=== PATIENT | female | born 1940 | race Caucasian/White ===

== ENCOUNTER → 2016-12-29 | Outpatient (REF) | payer MEDICARE, BC, OTHER ==
[~2016-12-29] MED LIST: ACID1TAB10 PO; ALDA50TA2 PO; AMIT25TA PO; AQUAOIN2 TOP; ASCO25TA PO; AUGM875T28 PO; BACITAB PO; BACL10TA2 PO; BUME1TAB27 PO; CARD40TA PO; CHEL50TA PO; CORE3.12 PO; CRAN500C2 PO; DIFL200T PO; DILT120C31 PO; DITR1TAB PO; FLUC10TA PO; GABA600T PO; ISOS30TA4 PO; LEVO25TA5 PO; LIDO1SOL7 SS; LOVE1INJ2 SC; LYRI75CA PO; MACR100C43 PO; MAGN400T5 PO; METF10004 PO; MULT1TAB10 PO; NYST1POW9 TOP; POTA10CA PO; PROBCAP14 PO; SODI200S PO; TRIA1CR TOP; TYLE650T25 PO; ZOLO25TA PO
[2016-12-29 18:01] LABS: MEAN CORPUSCULAR HEMOGLOBIN 29.6 pg (27.0-33.0); MEAN CORPUSCULAR HGB CONC 30.2 g/dl (32.0-36.5); MEAN CORPUSCULAR VOLUME 97.8 fl (80.0-96.0); RED CELL DISTRIBUTION WIDTH 14.8 % (11.5-14.5); WHITE BLOOD COUNT 9.9 K/mm3 (4.0-10.0)
[2016-12-29 19:02] LABS: ALBUMIN 2.1 GM/DL (3.2-5.2); ALBUMIN/GLOBULIN RATIO 0.48 (1.00-1.93); ALKALINE PHOSPHATASE 83 U/L (45-117); ALT/SGPT 7 U/L (12-78); ANION GAP 13 MEQ/L (8-16); AST/SGOT 9 U/L (15-37); BILIRUBIN,TOTAL 0.1 MG/DL (0.2-1.0); BLOOD UREA NITROGEN 31 MG/DL (7-18); CALCIUM LEVEL 8.1 MG/DL (8.8-10.2); CARBON DIOXIDE LEVEL 20 MEQ/L (21-32); CHLORIDE LEVEL 108 MEQ/L (98-107); CHOLESTEROL LEVEL 207 MG/DL (<200); CREATININE FOR GFR 0.95 MG/DL (0.55-1.02); FERRITIN 70 NG/ML (8-252); GLOMERULAR FILTRATION RATE > 60.0 (>39); GLUCOSE, FASTING 133 MG/DL (83-110); POTASSIUM SERUM 4.6 MEQ/L (3.5-5.1); SODIUM LEVEL 141 MEQ/L (136-145); TOTAL PROTEIN 6.5 GM/DL (6.4-8.2); TRIGLYCERIDES LEVEL 339 MG/DL (<150)
[2016-12-29 19:03] LABS: VITAMIN B12 LEVEL 1168 PG/ML
[2016-12-29 19:10] LABS: BANDS 1 % (< 11); EOSINOPHILS 1 % (0-5)
== END ==
LOC: M SFHCLERA 14:00
PROVIDERS: ATTEND Family Medicine
DX: E11.622 Type 2 diabetes mellitus with other skin ulcer (principal); G35 Multiple sclerosis; I11.0 Hypertensive heart disease with heart failure; Z74.09 Other reduced mobility; D64.9 Anemia, unspecified; Z79.4 Long term (current) use of insulin
CPT/HCPCS: 80053; 80061; 82043; 82607; 82728; 82746; 83036; 83540; 84443; 85007; 85027; G0463

== ENCOUNTER → 2017-03-02 | Outpatient (REF) | payer MEDICARE, OTHER | LOC: M SFHCLERA 14:52 | PROVIDERS: ATTEND Family Medicine | DX: E03.9 Hypothyroidism, unspecified (principal); Z53.8 Procedure and treatment not carried out for other reasons ==

== ENCOUNTER → 2017-09-03 | Outpatient (REF) | payer MEDICARE, OTHER ==
[2017-09-03 20:40] LABS: HEMATOCRIT 34.3 % (36.0-47.0); MEAN CORPUSCULAR HEMOGLOBIN 30.1 pg (27.0-33.0); MEAN CORPUSCULAR HGB CONC 29.2 g/dl (32.0-36.5); MEAN CORPUSCULAR VOLUME 103.3 fl (80.0-96.0); PLATELET COUNT, AUTOMATED 350 10^3/uL (150-450); RED BLOOD COUNT 3.32 10^6/uL (4.00-5.40); RED CELL DISTRIBUTION WIDTH 14.5 % (11.5-14.5)
[2017-09-03 20:42] LABS: ADD MANUAL DIFFER YES; DIFF SLIDE NUMBER 341; POS COUNT POS FLAG; POSITIVE MORPH POS FLAG
[2017-09-03 20:48] LABS: ESTIMATED AVERAGE GLUCOSE 151 MG/DL (60-110); HEMOGLOBIN A1c 6.9 %
[2017-09-03 21:03] LABS: BANDS 1 % (< 11); BASOPHILS 1 % (0-4); EOSINOPHILS 1 % (0-5); HYPOCHROMASIA 1+; LYMPHOCYTES 18 % (16-52); MONOCYTES 4 % (0-8); NEUTROPHILS 75 % (35-75); PLATELET ESTIMATE NORMAL (NORMAL)
[2017-09-03 21:29] LABS: CREATININE, URINE < 13.0 MG/DL
[2017-09-04 20:34] LABS: ALBUMIN 2.9 GM/DL (3.2-5.2); ALBUMIN/GLOBULIN RATIO 0.71 (1.00-1.93); ALKALINE PHOSPHATASE 75 U/L (45-117); ALT/SGPT 10 U/L (12-78); ANION GAP 5 MEQ/L (8-16); AST/SGOT 10 U/L (7-37); BILIRUBIN,TOTAL 0.2 MG/DL (0.2-1.0); BLOOD UREA NITROGEN 33 MG/DL (7-18); CALCIUM LEVEL 8.4 MG/DL (8.8-10.2); CARBON DIOXIDE LEVEL 24 MEQ/L (21-32); CHLORIDE LEVEL 112 MEQ/L (98-107); CHOLESTEROL LEVEL 262 MG/DL (<200); CHOLESTEROL RISK RATIO 6.717 (<5); CREATININE FOR GFR 1.05 MG/DL (0.55-1.30); GLUCOSE, FASTING 135 MG/DL (70-100); HDL CHOLESTEROL 39 MG/DL (>40); LDL CHOLESTEROL 156.4 MG/DL (<100); NON-HDL-C 223 MG/DL; SODIUM LEVEL 141 MEQ/L (136-145); TRIGLYCERIDES LEVEL 333 MG/DL (<150)
[2017-09-04 21:02] LABS: POTASSIUM SERUM 5.4 MEQ/L (3.5-5.1)
== END ==
LOC: M SFHCLERA 15:06
DX: E11.21 Type 2 diabetes mellitus with diabetic nephropathy (principal); E03.9 Hypothyroidism, unspecified; I10 Essential (primary) hypertension
CPT/HCPCS: 84443

== ENCOUNTER 2017-11-20 14:50 | Inpatient (IN) | payer MEDICARE, OTHER ==
[2017-11-20 15:47] LABS: HEMATOCRIT 29.6 % (36.0-47.0); HEMOGLOBIN 8.8 g/dl (12.0-15.5); MEAN CORPUSCULAR HEMOGLOBIN 30.1 pg (27.0-33.0); MEAN CORPUSCULAR HGB CONC 29.7 g/dl (32.0-36.5); MEAN CORPUSCULAR VOLUME 101.4 fl (80.0-96.0); PLATELET COUNT, AUTOMATED 328 10^3/uL (150-450); RED BLOOD COUNT 2.92 10^6/uL (4.00-5.40); RED CELL DISTRIBUTION WIDTH 15.6 % (11.5-14.5); WHITE BLOOD COUNT 9.9 10^3/uL (4.0-10.0)
[2017-11-20] MEDS: methylPREDNISolone INJ 125 MG/2 ML VIAL (J2930) IV (15:47)
[2017-11-20] MEDS: ALBUTEROL SULFATE 2.5 MG/0.5 ML INH NEB SOLN INH (15:49)
[2017-11-20] MEDS: IPRATROPIUM 0.5MG/ALBUTEROL 2.5MG INH SOL UD 3ML (DUONEB)(J7620) NEB (15:49)
[2017-11-20 15:52] LABS: ADD MANUAL DIFFER YES; DIFF SLIDE NUMBER 268; POS COUNT POS FLAG; POSITIVE MORPH POS FLAG
[2017-11-20 16:01] LABS: PROTHROMBIN TIME 15.4 SECONDS (12.1-14.4)
[2017-11-20 16:05] LABS: ALBUMIN 1.7 GM/DL (3.2-5.2); ALBUMIN/GLOBULIN RATIO 0.35 (1.00-1.93); ALKALINE PHOSPHATASE 77 U/L (45-117); ANION GAP 10 MEQ/L (8-16); AST/SGOT 6 U/L (7-37); BILIRUBIN,DIRECT < 0.1 MG/DL (0.0-0.2); BILIRUBIN,TOTAL 0.2 MG/DL (0.2-1.0); BLOOD UREA NITROGEN 27 MG/DL (7-18); CALCIUM LEVEL 7.5 MG/DL (8.8-10.2); CARBON DIOXIDE LEVEL 20 MEQ/L (21-32); CHLORIDE LEVEL 111 MEQ/L (98-107); CPK CREATINE PHOSPHOKINASE 24 U/L (26-192); CREATININE FOR GFR 1.16 MG/DL (0.55-1.30); GLOMERULAR FILTRATION RATE 48.1 (>39); GLUCOSE, FASTING 150 MG/DL (70-100); POTASSIUM SERUM 3.4 MEQ/L (3.5-5.1); SODIUM LEVEL 141 MEQ/L (136-145); TOTAL PROTEIN 6.6 GM/DL (6.4-8.2); TROPONIN I 0.03 NG/ML (< 0.10)
[2017-11-20 16:06] LABS: ABG BASE EXCESS -7.4 (-2.0-2.0); ABG PARTIAL PRESSURE CO2 57.8 mmHg (35.0-45.0); ABG PARTIAL PRESSURE O2 104.2 mmHg (75.0-100.0); ABG STANDARD HCO3 18.4 MEQ/L (22.0-26.0); ABG TOTAL CO2 22.8 MEQ/L (23.0-31.0)
[2017-11-20 16:06] LABS: LACTIC ACID SEPSIS PROTOCOL 0.6 MMOL/L (0.4-2.0)
[2017-11-20 16:08] LABS: ABG pH (ARTERIAL) 7.178 UNITS (7.350-7.450)
[2017-11-20 16:18] LABS: ALT/SGPT 6 U/L (12-78); CK-MB VALUE MASS < 1.0 NG/ML (<3.6); MB/CK RELATIVE INDEX 4.16 (< OR =4); NT-PRO BNP 33532 PG/ML (<450); THYROXINE (T4) 5.9 UG/DL (4.5-12.0)
[2017-11-20 16:59] LABS: ATYPICAL LYMPH 1 % (0-5); BANDS 3 % (< 11); EOSINOPHILS 5 % (0-5); LYMPHOCYTES 9 % (16-52); MONOCYTES 3 % (0-8); MYELOCYTES 3 % (0-0); NEUTROPHILS 76 % (35-75); PLATELET ESTIMATE NORMAL (NORMAL)
[2017-11-20] MEDS: LevoFLOXacin IV 750 MG in APPROPRIATE DILUENT 1 EA IV (17:06)
[2017-11-20] MEDS ORDERED: ISOVUE-370 76% 100ML VIAL (Q9967) As Ordered (17:07)
[2017-11-20 17:47] LABS: AMORPHOUS SEDIMENT RFX SMALL (NEGATIVE); KETONE, URINE AUTO RFX NEGATIVE (NEGATIVE); MUCUS, URINE RFX SMALL (NEGATIVE); NITRITE, URINE AUTO RFX NEGATIVE (NEGATIVE); RBC, URINE AUTO RFX 22 /HPF (0-3); SPECIFIC GRAVITY UR AUTO RFX 1.014 (1.002-1.035); SQUAM EPITHELIAL CELL UR AURFX 0 /HPF (0-6); YEAST LIKE CELL URINE AUTO RFX MODERATE
[2017-11-20 17:56] LABS: ABG BASE EXCESS -10.4 (-2.0-2.0); ABG HCO3 17.3 MEQ/L (22.0-26.0); ABG O2 SATURATION 94.4 % (95.0-99.0); ABG PARTIAL PRESSURE CO2 47.1 mmHg (35.0-45.0); ABG TOTAL CO2 18.8 MEQ/L (23.0-31.0); LEUKOCYTE ESTERASE UR AUTO RFX 2+ (NEGATIVE); WBC, URINE AUTO RFX 25 /HPF (0-3)
[2017-11-20 17:58] LABS: ABG pH (ARTERIAL) 7.184 UNITS (7.350-7.450)
[2017-11-20] MEDS ORDERED: GLUCAGON FOR INJ 1 MG VIAL (J1610) SC (18:00)
[2017-11-20] MEDS ORDERED: DEXTROSE 50% 50 ML SYRINGE IV (18:00)
[2017-11-20] MEDS ORDERED: GLUCOSE 4 GM CHEW TABLET PO (18:00)
[2017-11-20] MEDS ORDERED: ACETAMINOPHEN TAB 650MG DOSE (2X325MG) PO (18:00)
[2017-11-20] MEDS ORDERED: IPRATROPIUM 0.5MG/ALBUTEROL 2.5MG INH SOL UD 3ML (DUONEB)(J7620) NEB (18:00)
[2017-11-20] MEDS ORDERED: NYSTATIN 100,000 UNITS/GM TOPICAL PWD 15 GM TOP (19:45)
[2017-11-20 19:48] LABS: MAGNESIUM LEVEL 1.5 MG/DL (1.8-2.4); PHOSPHORUS LEVEL 4.5 MG/DL (2.5-4.9)
[2017-11-20 21:00] LABS: BEDSIDE GLUCOSE 154 MG/DL (83-110)
[2017-11-20] MEDS: HumaLOG INSULIN (NovoLOG) PER UNIT SC (21:00)
[2017-11-20] MEDS: guaiFENesin ER 600 MG TAB PO (21:07)
[2017-11-20] MEDS: POTASSIUM CHLORIDE 10 MEQ SR TABLET PO (21:07)
[2017-11-20] MEDS: MAG SULF 1GM/100ML (MAG RUN) 1 GM in APPROPRIATE DILUENT 1 EA IV ×2 (21:07→22:02)
[2017-11-20] MEDS: ISOSORBIDE MON. (IMDUR) 30 MG XR TAB PO (21:08)
[2017-11-20] MEDS: GABAPENTIN 300 MG CAP PO (21:08)
[2017-11-20] MEDS: PREGABALIN 50 MG CAP (LYRICA) PO (21:08)
[2017-11-20] MEDS: BUMETANIDE 1 MG/4 ML INJ (S0171) IV (21:20)
[2017-11-20 21:31] LABS: CK-MB VALUE MASS < 1.0 NG/ML (<3.6); CPK CREATINE PHOSPHOKINASE 24 U/L (26-192); MB/CK RELATIVE INDEX 4.16 (< OR =4); TROPONIN I 0.04 NG/ML (< 0.10)
[2017-11-20 21:32] LABS: FOLATE 16.3 NG/ML (>5.4); VITAMIN B12 LEVEL > 2000 PG/ML (247-911)
[2017-11-20 21:54] LABS: ANION GAP 10 MEQ/L (8-16); BLOOD UREA NITROGEN 27 MG/DL (7-18); CALCIUM LEVEL 7.4 MG/DL (8.8-10.2); CARBON DIOXIDE LEVEL 20 MEQ/L (21-32); CHLORIDE LEVEL 113 MEQ/L (98-107); CREATININE FOR GFR 1.08 MG/DL (0.55-1.30); GLOMERULAR FILTRATION RATE 52.2 (>39); GLUCOSE, FASTING 148 MG/DL (70-100); POTASSIUM SERUM 3.8 MEQ/L (3.5-5.1); SODIUM LEVEL 143 MEQ/L (136-145)
[2017-11-21 03:09] LABS: HEMATOCRIT 30.6 % (36.0-47.0); MEAN CORPUSCULAR HEMOGLOBIN 29.6 pg (27.0-33.0); MEAN CORPUSCULAR HGB CONC 29.4 g/dl (32.0-36.5); MEAN CORPUSCULAR VOLUME 100.7 fl (80.0-96.0); PLATELET COUNT, AUTOMATED 269 10^3/uL (150-450); RED BLOOD COUNT 3.04 10^6/uL (4.00-5.40); RED CELL DISTRIBUTION WIDTH 15.6 % (11.5-14.5); WHITE BLOOD COUNT 6.2 10^3/uL (4.0-10.0)
[2017-11-21 03:32] LABS: ANION GAP 9 MEQ/L (8-16); BLOOD UREA NITROGEN 29 MG/DL (7-18); CALCIUM LEVEL 7.4 MG/DL (8.8-10.2); CARBON DIOXIDE LEVEL 21 MEQ/L (21-32); CHLORIDE LEVEL 112 MEQ/L (98-107); CPK CREATINE PHOSPHOKINASE 21 U/L (26-192); CREATININE FOR GFR 1.14 MG/DL (0.55-1.30); GLOMERULAR FILTRATION RATE 48.9 (>39); GLUCOSE, FASTING 254 MG/DL (70-100); MAGNESIUM LEVEL 1.8 MG/DL (1.8-2.4); POTASSIUM SERUM 4.1 MEQ/L (3.5-5.1); SODIUM LEVEL 142 MEQ/L (136-145); TROPONIN I 0.03 NG/ML (< 0.10)
[2017-11-21 03:36] LABS: POS COUNT POS FLAG; POSITIVE DIFF POS FLAG; POSITIVE MORPH POS FLAG
[2017-11-21 03:37] LABS: ADD MANUAL DIFFER YES; DIFF SLIDE NUMBER 61
[2017-11-21 03:45] LABS: MB/CK RELATIVE INDEX 4.76 (< OR =4); NT-PRO BNP 31335 PG/ML (<450)
[2017-11-21 04:16] LABS: ANISOCYTOSIS 1+; BANDS 4 % (< 11); LYMPHOCYTES 5 % (16-52); METAMYELOCYTES 1 % (0-0); MYELOCYTES 1 % (0-0); NEUTROPHILS 89 % (35-75); PLATELET ESTIMATE NORMAL (NORMAL)
[2017-11-21 04:18] LABS: HYPOCHROMASIA 1+
[2017-11-21] MEDS: LEVOTHYROXINE 75MCG TABLET (0.075MG) PO (05:19)
[2017-11-21] MEDS: HumaLOG INSULIN (NovoLOG) PER UNIT SC ×4 (07:23→20:29)
[2017-11-21 08:05] LABS: ABG BASE EXCESS -7.1 (-2.0-2.0); ABG HCO3 19.3 MEQ/L (22.0-26.0); ABG O2 SATURATION 91.5 % (95.0-99.0); ABG PARTIAL PRESSURE CO2 42.6 mmHg (35.0-45.0); ABG PARTIAL PRESSURE O2 63.2 mmHg (75.0-100.0); ABG STANDARD HCO3 18.5 MEQ/L (22.0-26.0); ABG TOTAL CO2 20.6 MEQ/L (23.0-31.0); ABG pH (ARTERIAL) 7.274 UNITS (7.350-7.450)
[2017-11-21] MEDS: guaiFENesin ER 600 MG TAB PO ×2 (08:39→20:28)
[2017-11-21] MEDS: MULTIVITAMINS/MINERALS THERAP 1 TAB PO (08:40)
[2017-11-21] MEDS: ASCORBIC ACID 500 MG TAB PO (08:40)
[2017-11-21] MEDS: oxyBUTYnin *DITROPAN XL* 5 MG TABCR PO (08:40)
[2017-11-21] MEDS: GABAPENTIN 300 MG CAP PO ×3 (08:40→20:29)
[2017-11-21] MEDS: BUMETANIDE 1 MG/4 ML INJ (S0171) IV ×2 (08:41→17:43)
[2017-11-21] MEDS: PREGABALIN 50 MG CAP (LYRICA) PO ×3 (08:41→20:29)
[2017-11-21] MEDS: ENOXAPARIN 40 MG/0.4 ML SYRINGE (J1650) SC (08:41)
[2017-11-21] MEDS: MAGNESIUM OXIDE 400 MG TAB (MAG-OX) PO (08:41)
[2017-11-21] MEDS ORDERED: BUMETANIDE 1 MG TAB PO (09:00)
[2017-11-21 13:45] LABS: BEDSIDE GLUCOSE 228 MG/DL (83-110)
[2017-11-21 17:31] LABS: ABG BASE EXCESS -7.3 (-2.0-2.0); ABG HCO3 18.7 MEQ/L (22.0-26.0); ABG O2 SATURATION 91.4 % (95.0-99.0); ABG PARTIAL PRESSURE CO2 39.9 mmHg (35.0-45.0); ABG PARTIAL PRESSURE O2 64.8 mmHg (75.0-100.0); ABG STANDARD HCO3 18.4 MEQ/L (22.0-26.0); ABG TOTAL CO2 19.9 MEQ/L (23.0-31.0); ABG pH (ARTERIAL) 7.289 UNITS (7.350-7.450)
[2017-11-21 17:38] LABS: BEDSIDE GLUCOSE 230 MG/DL (83-110)
[2017-11-21 20:04] LABS: BEDSIDE GLUCOSE 201 MG/DL (83-110)
[2017-11-21] MEDS: ISOSORBIDE MON. (IMDUR) 30 MG XR TAB PO (20:29)
[2017-11-22] MEDS: LEVOTHYROXINE 75MCG TABLET (0.075MG) PO (05:10)
[2017-11-22 05:22] LABS: BEDSIDE GLUCOSE 218 MG/DL (83-110)
[2017-11-22 07:48] LABS: HEMATOCRIT 26.1 % (36.0-47.0); HEMOGLOBIN 7.8 g/dl (12.0-15.5); MEAN CORPUSCULAR HEMOGLOBIN 30.4 pg (27.0-33.0); MEAN CORPUSCULAR HGB CONC 29.9 g/dl (32.0-36.5); MEAN CORPUSCULAR VOLUME 101.6 fl (80.0-96.0); PLATELET COUNT, AUTOMATED 265 10^3/uL (150-450); RED BLOOD COUNT 2.57 10^6/uL (4.00-5.40); RED CELL DISTRIBUTION WIDTH 15.7 % (11.5-14.5); WHITE BLOOD COUNT 4.5 10^3/uL (4.0-10.0)
[2017-11-22 07:57] LABS: ADD MANUAL DIFFER YES; DIFF SLIDE NUMBER 89; POS COUNT POS FLAG; POSITIVE MORPH POS FLAG
[2017-11-22 08:20] LABS: ALBUMIN 1.9 GM/DL (3.2-5.2); ALBUMIN/GLOBULIN RATIO 0.49 (1.00-1.93); ALKALINE PHOSPHATASE 69 U/L (45-117); ALT/SGPT < 6 U/L (12-78); ANION GAP 8 MEQ/L (8-16); AST/SGOT 6 U/L (7-37); BILIRUBIN,TOTAL 0.2 MG/DL (0.2-1.0); BLOOD UREA NITROGEN 33 MG/DL (7-18); CALCIUM LEVEL 7.2 MG/DL (8.8-10.2); CARBON DIOXIDE LEVEL 22 MEQ/L (21-32); CHLORIDE LEVEL 111 MEQ/L (98-107); CREATININE FOR GFR 1.22 MG/DL (0.55-1.30); GLOMERULAR FILTRATION RATE 45.3 (>39); GLUCOSE, FASTING 207 MG/DL (70-100); MAGNESIUM LEVEL 1.8 MG/DL (1.8-2.4); POTASSIUM SERUM 4.5 MEQ/L (3.5-5.1); SODIUM LEVEL 141 MEQ/L (136-145); TOTAL PROTEIN 5.8 GM/DL (6.4-8.2)
[2017-11-22 08:28] LABS: ABG BASE EXCESS -7.7 (-2.0-2.0); ABG HCO3 19.2 MEQ/L (22.0-26.0); ABG O2 SATURATION 98.6 % (95.0-99.0); ABG PARTIAL PRESSURE CO2 45.8 mmHg (35.0-45.0); ABG PARTIAL PRESSURE O2 156.2 mmHg (75.0-100.0); ABG STANDARD HCO3 18.1 MEQ/L (22.0-26.0); ABG TOTAL CO2 20.6 MEQ/L (23.0-31.0)
[2017-11-22 08:30] LABS: ANISOCYTOSIS 1+; HYPOCHROMASIA 1+; LYMPHOCYTES 8 % (16-52); METAMYELOCYTES 1 % (0-0); MONOCYTES 7 % (0-8); NEUTROPHILS 84 % (35-75); POIKILOCYTOSIS 1+; POLYCHROMASIA 1+; SCHISTOCYTES 1+
[2017-11-22 08:31] LABS: OVALOCYTES 1+
[2017-11-22 08:33] LABS: PLATELET ESTIMATE NORMAL (NORMAL)
[2017-11-22] MEDS: HumaLOG INSULIN (NovoLOG) PER UNIT SC ×4 (09:07→20:57)
[2017-11-22] MEDS: guaiFENesin ER 600 MG TAB PO ×2 (09:08→20:56)
[2017-11-22] MEDS: MULTIVITAMINS/MINERALS THERAP 1 TAB PO (09:08)
[2017-11-22] MEDS: oxyBUTYnin *DITROPAN XL* 5 MG TABCR PO (09:08)
[2017-11-22] MEDS: MAGNESIUM OXIDE 400 MG TAB (MAG-OX) PO (09:08)
[2017-11-22] MEDS: PREGABALIN 50 MG CAP (LYRICA) PO ×3 (09:08→20:56)
[2017-11-22] MEDS: GABAPENTIN 300 MG CAP PO ×3 (09:08→20:57)
[2017-11-22] MEDS: ENOXAPARIN 40 MG/0.4 ML SYRINGE (J1650) SC (09:08)
[2017-11-22] MEDS: ASCORBIC ACID 500 MG TAB PO (09:08)
[2017-11-22] MEDS: BUMETANIDE 1 MG/4 ML INJ (S0171) IV ×2 (09:10→16:14)
[2017-11-22 12:04] LABS: BEDSIDE GLUCOSE 190 MG/DL (83-110)
[2017-11-22 12:23] LABS: HEMATOCRIT 27.3 % (36.0-47.0); HEMOGLOBIN 7.9 g/dl (12.0-15.5)
[2017-11-22] MEDS: predniSONE 20 MG TAB PO (13:16)
[2017-11-22 14:29] LABS: C REACTIVE PROTEIN QUANTITATIV 7.11 MG/DL (0.00-0.30)
[2017-11-22] MEDS: FLUCONAZOLE 400 MG in APPROPRIATE DILUENT 1 EA IV (14:47)
[2017-11-22 17:11] LABS: BEDSIDE GLUCOSE 167 MG/DL (83-110)
[2017-11-22 20:53] LABS: BEDSIDE GLUCOSE 169 MG/DL (83-110)
[2017-11-22] MEDS: ISOSORBIDE MON. (IMDUR) 30 MG XR TAB PO (20:56)
[2017-11-23 04:30] LABS: HEMATOCRIT 28.6 % (36.0-47.0); HEMOGLOBIN 8.8 g/dl (12.0-15.5); MEAN CORPUSCULAR HEMOGLOBIN 30.3 pg (27.0-33.0); MEAN CORPUSCULAR HGB CONC 30.8 g/dl (32.0-36.5); MEAN CORPUSCULAR VOLUME 98.6 fl (80.0-96.0); PLATELET COUNT, AUTOMATED 287 10^3/uL (150-450); RED CELL DISTRIBUTION WIDTH 15.8 % (11.5-14.5); WHITE BLOOD COUNT 4.6 10^3/uL (4.0-10.0)
[2017-11-23 04:33] LABS: ADD MANUAL DIFFER YES; DIFF SLIDE NUMBER 67; POS COUNT POS FLAG; POSITIVE MORPH POS FLAG
[2017-11-23 05:07] LABS: ALBUMIN 2.2 GM/DL (3.2-5.2); ALBUMIN/GLOBULIN RATIO 0.48 (1.00-1.93); ALKALINE PHOSPHATASE 70 U/L (45-117); ALT/SGPT 7 U/L (12-78); ANION GAP 7 MEQ/L (8-16); AST/SGOT 7 U/L (7-37); BILIRUBIN,TOTAL 0.2 MG/DL (0.2-1.0); BLOOD UREA NITROGEN 35 MG/DL (7-18); C REACTIVE PROTEIN QUANTITATIV 4.62 MG/DL (0.00-0.30); CALCIUM LEVEL 7.7 MG/DL (8.8-10.2); CARBON DIOXIDE LEVEL 22 MEQ/L (21-32); CHLORIDE LEVEL 110 MEQ/L (98-107); GLOMERULAR FILTRATION RATE 46.1 (>39); GLUCOSE, FASTING 193 MG/DL (70-100); MAGNESIUM LEVEL 1.9 MG/DL (1.8-2.4); POTASSIUM SERUM 4.6 MEQ/L (3.5-5.1); SODIUM LEVEL 139 MEQ/L (136-145); TOTAL PROTEIN 6.8 GM/DL (6.4-8.2)
[2017-11-23 05:09] LABS: LYMPHOCYTES 5 % (16-52); METAMYELOCYTES 3 % (0-0); MONOCYTES 1 % (0-8); MYELOCYTES 1 % (0-0); NEUTROPHILS 90 % (35-75)
[2017-11-23 05:10] LABS: ANISOCYTOSIS 1+; HYPOCHROMASIA 1+; PLATELET ESTIMATE NORMAL (NORMAL)
[2017-11-23] MEDS: LEVOTHYROXINE 75MCG TABLET (0.075MG) PO (05:33)
[2017-11-23] MEDS: FLUCONAZOLE 100 MG TAB PO (09:31)
[2017-11-23] MEDS: HumaLOG INSULIN (NovoLOG) PER UNIT SC ×4 (09:31→21:25)
[2017-11-23] MEDS: ENOXAPARIN 40 MG/0.4 ML SYRINGE (J1650) SC (09:31)
[2017-11-23] MEDS: predniSONE 10 MG TAB PO (09:32)
[2017-11-23] MEDS: GABAPENTIN 300 MG CAP PO ×3 (09:32→21:11)
[2017-11-23] MEDS: oxyBUTYnin *DITROPAN XL* 5 MG TABCR PO (09:33)
[2017-11-23] MEDS: MAGNESIUM OXIDE 400 MG TAB (MAG-OX) PO (09:33)
[2017-11-23] MEDS: guaiFENesin ER 600 MG TAB PO ×2 (09:33→21:12)
[2017-11-23] MEDS: ASCORBIC ACID 500 MG TAB PO (09:33)
[2017-11-23] MEDS: PREGABALIN 50 MG CAP (LYRICA) PO ×3 (09:33→21:11)
[2017-11-23] MEDS: BUMETANIDE 1 MG TAB PO ×2 (09:33→21:11)
[2017-11-23] MEDS: MULTIVITAMINS/MINERALS THERAP 1 TAB PO (09:33)
[2017-11-23 10:20] LABS: ABG BASE EXCESS -5.9 (-2.0-2.0); ABG O2 SATURATION 95.4 % (95.0-99.0); ABG PARTIAL PRESSURE CO2 41.2 mmHg (35.0-45.0); ABG PARTIAL PRESSURE O2 85.3 mmHg (75.0-100.0); ABG STANDARD HCO3 19.5 MEQ/L (22.0-26.0); ABG TOTAL CO2 21.3 MEQ/L (23.0-31.0); ABG pH (ARTERIAL) 7.304 UNITS (7.350-7.450)
[2017-11-23 12:17] LABS: BEDSIDE GLUCOSE 213 MG/DL (83-110)
[2017-11-23 17:21] LABS: BEDSIDE GLUCOSE 220 MG/DL (83-110)
[2017-11-23] MEDS: ISOSORBIDE MON. (IMDUR) 30 MG XR TAB PO (21:12)
[2017-11-23 21:23] LABS: BEDSIDE GLUCOSE 252 MG/DL (83-110)
[2017-11-24 05:20] LABS: HEMATOCRIT 26.7 % (36.0-47.0); HEMOGLOBIN 8.2 g/dl (12.0-15.5); MEAN CORPUSCULAR HGB CONC 30.7 g/dl (32.0-36.5); MEAN CORPUSCULAR VOLUME 97.8 fl (80.0-96.0); PLATELET COUNT, AUTOMATED 275 10^3/uL (150-450); RED BLOOD COUNT 2.73 10^6/uL (4.00-5.40); RED CELL DISTRIBUTION WIDTH 15.8 % (11.5-14.5); WHITE BLOOD COUNT 4.9 10^3/uL (4.0-10.0)
[2017-11-24 05:30] LABS: ADD MANUAL DIFFER YES; DIFF SLIDE NUMBER 35; POS COUNT POS FLAG; POSITIVE MORPH POS FLAG
[2017-11-24 05:43] LABS: ALBUMIN 2.4 GM/DL (3.2-5.2); ALBUMIN/GLOBULIN RATIO 0.55 (1.00-1.93); ALKALINE PHOSPHATASE 63 U/L (45-117); ALT/SGPT 10 U/L (12-78); ANION GAP 7 MEQ/L (8-16); AST/SGOT 7 U/L (7-37); BILIRUBIN,TOTAL 0.3 MG/DL (0.2-1.0); BLOOD UREA NITROGEN 41 MG/DL (7-18); C REACTIVE PROTEIN QUANTITATIV 2.83 MG/DL (0.00-0.30); CALCIUM LEVEL 7.8 MG/DL (8.8-10.2); CARBON DIOXIDE LEVEL 25 MEQ/L (21-32); CHLORIDE LEVEL 110 MEQ/L (98-107); CREATININE FOR GFR 1.29 MG/DL (0.55-1.30); GLOMERULAR FILTRATION RATE 42.4 (>39); GLUCOSE, FASTING 206 MG/DL (70-100); MAGNESIUM LEVEL 1.6 MG/DL (1.8-2.4); POTASSIUM SERUM 4.3 MEQ/L (3.5-5.1); SODIUM LEVEL 142 MEQ/L (136-145); TOTAL PROTEIN 6.8 GM/DL (6.4-8.2)
[2017-11-24 05:59] LABS: ANISOCYTOSIS 1+; LYMPHOCYTES 10 % (16-52); METAMYELOCYTES 1 % (0-0); MONOCYTES 3 % (0-8); MYELOCYTES 1 % (0-0); NEUTROPHILS 85 % (35-75); PLATELET ESTIMATE INCREASED (NORMAL)
[2017-11-24 06:00] LABS: HYPOCHROMASIA 1+; MICROCYTOSIS 1+
[2017-11-24] MEDS: LEVOTHYROXINE 75MCG TABLET (0.075MG) PO (06:24)
[2017-11-24] MEDS ORDERED: PILL CRUSHER/CUTTER 1 EACH XX (09:30)
[2017-11-24] MEDS: HumaLOG INSULIN (NovoLOG) PER UNIT SC ×2 (09:32→13:34)
[2017-11-24] MEDS: ENOXAPARIN 40 MG/0.4 ML SYRINGE (J1650) SC (09:32)
[2017-11-24] MEDS: predniSONE 10 MG TAB PO (09:33)
[2017-11-24] MEDS: BUMETANIDE 1 MG TAB PO (09:33)
[2017-11-24] MEDS: oxyBUTYnin *DITROPAN XL* 5 MG TABCR PO (09:33)
[2017-11-24] MEDS: MULTIVITAMINS/MINERALS THERAP 1 TAB PO (09:33)
[2017-11-24] MEDS: ASCORBIC ACID 500 MG TAB PO (09:33)
[2017-11-24] MEDS: PREGABALIN 50 MG CAP (LYRICA) PO (09:34)
[2017-11-24] MEDS: guaiFENesin ER 600 MG TAB PO (09:34)
[2017-11-24] MEDS: GABAPENTIN 300 MG CAP PO (09:34)
[2017-11-24] MEDS: MAGNESIUM OXIDE 400 MG TAB (MAG-OX) PO (09:34)
[2017-11-24] MEDS: FLUCONAZOLE 100 MG TAB PO (10:13)
[2017-11-24 11:58] LABS: BEDSIDE GLUCOSE 225 MG/DL (83-110)
[2017-11-25 00:08] LABS: HOMOCYST(E)INE SERUM 6.9 umol/L (0.0-15.0)
[2017-11-25 00:08] LABS: Methylmalonic Acid 509 nmol/L (0-378)
== END 2017-11-24 14:34 | disposition home health service (06) | DRG 291 ==
LOC: M PCU 11-23 22:14 → M ED 14:50 → M ED INP 17:47 → M ICU 19:19
DX: I50.33 Acute on chronic diastolic (congestive) heart failure (principal); J96.02 Acute respiratory failure with hypercapnia; J96.01 Acute respiratory failure with hypoxia; R53.2 Functional quadriplegia; E87.4 Mixed disorder of acid-base balance; J44.1 Chronic obstructive pulmonary disease with (acute) exacerbation; E87.2 Acidosis; G35 Multiple sclerosis; I11.0 Hypertensive heart disease with heart failure; E03.9 Hypothyroidism, unspecified; E87.6 Hypokalemia; E11.9 Type 2 diabetes mellitus without complications; D53.9 Nutritional anemia, unspecified; N31.9 Neuromuscular dysfunction of bladder, unspecified; Z91.19 Patient's noncompliance with other medical treatment and regimen; Z79.899 Other long term (current) drug therapy; Z88.8 Allergy status to other drugs, medicaments and biological substances; Z88.2 Allergy status to sulfonamides; Z88.0 Allergy status to penicillin; E66.9 Obesity, unspecified

== ENCOUNTER → 2018-01-05 | Outpatient (REF) | payer MEDICARE, OTHER ==
[2018-01-05 18:54] LABS: HEMATOCRIT 28.4 % (36.0-47.0); HEMOGLOBIN 8.3 g/dl (12.0-15.5); MEAN CORPUSCULAR HEMOGLOBIN 30.5 pg (27.0-33.0); MEAN CORPUSCULAR HGB CONC 29.2 g/dl (32.0-36.5); MEAN CORPUSCULAR VOLUME 104.4 fl (80.0-96.0); PLATELET COUNT, AUTOMATED 327 10^3/uL (150-450); RED BLOOD COUNT 2.72 10^6/uL (4.00-5.40); RED CELL DISTRIBUTION WIDTH 16.8 % (11.5-14.5); WHITE BLOOD COUNT 8.4 10^3/uL (4.0-10.0)
[2018-01-05 19:05] LABS: ANION GAP 7 MEQ/L (8-16); BLOOD UREA NITROGEN 71 MG/DL (7-18); CALCIUM LEVEL 7.9 MG/DL (8.8-10.2); CARBON DIOXIDE LEVEL 19 MEQ/L (21-32); CHLORIDE LEVEL 114 MEQ/L (98-107); CREATININE FOR GFR 1.12 MG/DL (0.55-1.30); GLUCOSE, FASTING 149 MG/DL (70-100); SODIUM LEVEL 140 MEQ/L (136-145)
[2018-01-05 19:06] LABS: INR 1.93; PROTHROMBIN TIME 22.4 SECONDS (12.1-14.4)
[2018-01-05 19:19] LABS: ESTIMATED AVERAGE GLUCOSE 143 MG/DL (60-110); HEMOGLOBIN A1c 6.6 %
[2018-01-05 19:56] LABS: POTASSIUM SERUM 6.1 MEQ/L (3.5-5.1)
== END ==
LOC: M SFHCLERA 15:25
DX: E11.49 Type 2 diabetes mellitus with other diabetic neurological complication (principal); I48.2 Chronic atrial fibrillation; N39.0 Urinary tract infection, site not specified
CPT/HCPCS: 83036